=== PATIENT | female | born 1990 ===

== ENCOUNTER 2018-01-22 13:16 | Emergency (ER) | payer OTHER ==
[2018-01-22 14:53] LABS: SQUAMOUS EPITHIAL 3 /hpf (0-5); URINE BACTERIA RARE (<OCC); URINE BILIRUBIN NEGATIVE (NEGATIVE); URINE BLOOD 3+ (NEGATIVE); URINE CLARITY Hazy (Clear); URINE COLOR Yellow (YELLOW); URINE GLUCOSE (UA) NORMAL (Normal); URINE LEUKOCYTE ESTERASE 3+ Leu/uL (Negative); URINE PROTEIN 2+ mg/dL (NEGATIVE); URINE UROBILINOGEN NORMAL mg/dL (0.2-1.0)
[2018-01-22 15:10] LABS: BASO # 0.1 K/uL (0.0-0.2); BASO % 0.5 % (0.0-2.0); EOS # 0.1 K/uL (0.0-0.7); EOS % 0.5 % (0.0-4.0); HEMOGLOBIN 11.9 g/dL (11.0-16.0); LYMPH # 1.4 K/uL (1.0-4.3); LYMPH % 11.1 % (20.0-40.0); MEAN CELL VOLUME 88.6 fL (81.0-99.0); MEAN CORPUSCULAR HEMOGLOBIN 29.9 pg (27.0-31.0); MEAN CORPUSCULAR HGB CONC 33.7 g/dL (33.0-37.0); MEAN PLATELET VOLUME 8.4 fL (7.2-11.7); MONO # 1.1 K/uL (0.0-0.8); MONO % 8.7 % (0.0-10.0); NEUT # 9.8 K/uL (1.8-7.0); NEUT % 79.2 % (50.0-75.0); RBC 3.98 Mil/uL (3.80-5.20); RED CELL DISTRIBUTION WIDTH 12.7 % (11.5-14.5); WHITE BLOOD COUNT 12.3 K/uL (4.8-10.8)
[2018-01-22 15:24] LABS: ALB/GLOB RATIO 1.1 (1.0-2.1); ALBUMIN 4.2 g/dL (3.5-5.0); ALT/SGPT 12 U/L (9-52); AST/SGOT 18 U/L (14-36); BLOOD UREA NITROGEN 9 mg/dL (7-17); GFR AFRICAN-AMERICAN > 60; GFR NON-AFRICAN AMERICAN > 60
[2018-01-22] MEDS ORDERED: cefTRIAXone IV 1 gm in Dextros 50 ML IVPB ONE (15:39)
[2018-01-22] MEDS ORDERED: Iodixanol 320 MG/ML 100 ML BOTTLE IV ONE (16:15)
[2018-01-22 17:11] VITALS: BP 98/64; PULSE 87; RESP 18; TEMP 98; O2SAT 100
--- NOTE | 2018-01-22 17:21 | CT ---
PROCEDURE: CT Chest with contrast (Pulmonary Angiogram) HISTORY: sob and recent travel COMPARISON: None available. TECHNIQUE: Axial computed tomography images were obtained of the chest in the pulmonary arterial phase of enhancement. Coronal and sagittal reformatted images were created and reviewed. Intravenous contrast dose: Visipaque 320, 100 cc Radiation dose: Total exam DLP = 262.13 mGy-cm. This CT exam was performed using one or more of the following dose reduction techniques: Automated exposure control, adjustment of the mA and/or kV according to patient size, and/or use of iterative reconstruction technique. FINDINGS: PULMONARY ARTERIES: Unremarkable. No pulmonary embolism. AORTA: No acute findings. No thoracic aortic aneurysm. LUNGS: Unremarkable. No nodule, mass or pulmonary consolidation. PLEURAL SPACES: Unremarkable. No effusion or pneuomothorax. HEART: Unremarkable. No cardiomegaly. No significant pericardial effusion. LYMPH NODES: No lymphadenopathy. BONES, CHEST WALL: Unremarkable. No fracture or destructive lesion OTHER FINDINGS: A tiny hiatal hernia is identified. IMPRESSION: Unremarkable CT pulmonary angiogram. No pulmonary embolus. No acute infiltrate, pleural or pericardial effusion or pneumothorax. No significant lymphadenopathy identified.
--- NOTE | 2018-01-22 17:31 | C.PDOC ---
History Of Present Illness 27 y/o female presents to the ED complaining of UTI symptoms and dysuria, onset 1 week ago. Patient has now developed right flank pain. She went to [facility] today, was given Macrobid and referred to the ED due to SOB. Of note patient is on control and flew back from [place] recently. [facility] advised her to come in to rule out clot/PE. Patient denies chest pain, nausea, or vomiting. Time Seen by Provider: 01/22/18 14:20 Chief Complaint (Nursing): Back Pain History Per: Patient History/Exam Limitations: no limitations Onset/Duration Of Symptoms: Days Current Symptoms Are (Timing): Still Present Past Medical History Reviewed: Historical Data, Nursing Documentation, Vital Signs Vital Signs: Last Vital Signs Temp 98 F 01/22/18 17:10 Pulse 87 01/22/18 17:10 Resp 18 01/22/18 17:10 BP 98/64 L 01/22/18 17:10 Pulse Ox 100 01/22/18 18:48 - Medical History PMH: No Chronic Diseases Surgical History: No Surg Hx Family History: States: No Known Family Hx - Social History Hx Tobacco Use: No Hx Alcohol Use: Yes Hx Substance Use: No - Immunization History Hx Tetanus Toxoid Vaccination: No Hx Influenza Vaccination: No Hx Pneumococcal Vaccination: No Review Of Systems Respiratory: Positive for: Shortness of Breath Genitourinary: Positive for: Dysuria Musculoskeletal: Positive for: Other (Flank pain) Physical Exam - Physical Exam Appears: Non-toxic, No Acute Distress Skin: Normal Color, Warm, Dry Head: Atraumatic, Normacephalic Eye(s): bilateral: Normal Inspection, PERRL, EOMI Nose: Normal Oral Mucosa: Moist Neck: Normal ROM Chest: Symmetrical, No Tenderness Cardiovascular: Rhythm Regular, No Murmur Respiratory: Normal Breath Sounds, No Accessory Muscle Use, No Rales, No Rhonchi , No Wheezing Gastrointestinal/Abdominal: Soft, No Tenderness Back: CVA Tenderness (mild right-sided CVA tenderness) Extremity: Bilateral: Atraumatic, No Pedal Edema, Normal ROM Pulses: Left Dorsalis Pedis: Normal, Right Dorsalis Pedis: Normal Neurological/Psych: Oriented x3, Normal Speech ED Course And Treatment - Laboratory Results Result Diagrams: 01/22/18 15:03 01/22/18 15:03 O2 Sat by Pulse Oximetry: 100 (RA) Pulse Ox Interpretation: Normal - CT Scan/US CTA Chest Other Rad Studies (CT/US): Read By Radiologist, Radiology Report Reviewed CT/US Interpretation: FINDINGS: PULMONARY ARTERIES: Unremarkable. No pulmonary embolism. AORTA: No acute findings. No thoracic aortic aneurysm. LUNGS: Unremarkable. No nodule, mass or pulmonary consolidation. PLEURAL SPACES: Unremarkable. No effusion or pneuomothorax. HEART: Unremarkable. No cardiomegaly. No significant pericardial effusion. LYMPH NODES: No lymphadenopathy. BONES, CHEST WALL: Unremarkable. No fracture or destructive lesion. OTHER FINDINGS: A tiny hiatal hernia is identified. IMPRESSION: Unremarkable CT pulmonary angiogram. No pulmonary embolus. No acute infiltrate, pleural or pericardial effusion or pneumothorax. No significant lymphadenopathy identified. Medical Decision Making Medical Decision Making: Impression: flank pain, dysuria Plan: * CMP * CBC * D dimer * Urine culture * UA * Toradol 30 mg IVP Labs reviewed: Dimer slightly elevated. Ordered CTA chest to rule out PE Urine indicative of UTI. Patient given IV Rocephin in the ED. CT Angio is negative. Final Impression: Early pyelonephritis. Patient will be discharged home. Advised to follow up with PMD in 2 days. Disposition Counseled Patient/Family Regarding: Studies Performed, Diagnosis, Need For Followup, Rx Given - Disposition Referrals: at [facility] [Outside] Disposition: HOME/ ROUTINE Disposition Time: 17:30 Condition: STABLE Additional Instructions: follow up with your doctor in 2 days call to make an appointment continue your home medications return to ER if symptoms worsens or progress Prescriptions: Ciprofloxacin HCl [Cipro] 500 mg PO BID #20 tab Fluconazole [Diflucan] 150 mg PO ONCE #1 tab Naproxen [Naprosyn] 500 mg PO BID PRN #16 tab PRN Reason: Pain, Moderate (4-7) Instructions: Urinary Tract Infections in Adults, Kidney Infection (DC) Forms: General Discharge Instructions, [facility] ([place]i), Work Excuse - Clinical Impression Clinical Impression: Pyelonephritis - Scribe Statement The provider has reviewed the documentation as recorded by the Scribe (Amy Bruno) Provider Attestation: All medical record entries made by the Scribe were at my direction and personally dictated by me. I have reviewed the chart and agree that the record accurately reflects my personal performance of the history, physical exam, medical decision making, and the department course for this patient. I have also personally directed, reviewed, and agree with the discharge instructions and disposition.
== END 2018-01-22 17:44 | disposition home or self-care (01) ==
LOC: C.ER 13:16
DX: N12 Tubulo-interstitial nephritis, not specified as acute or chronic (principal)
CPT/HCPCS: 71275; 80053; 81001; 85025; 85378; 87086; 96365; 96375; 99285; J0696; J1885; Q9967